=== PATIENT | female | born 1960 | race Caucasian/White ===

== ENCOUNTER 2023-12-15 09:32 | Day surgery (SDC) | payer BC, OTHER ==
[2023-12-15] MEDS ORDERED: Sodium Chloride 0.9% 10 ML Syringe FLUSH PRN (10:00)
[2023-12-15] MEDS: Lactated Ringers 1,000 ML IV SCH (10:15)
[2023-12-15] MEDS ORDERED: Propofol 200 MG/20 ML SDV ONE (10:44)
[2023-12-15] MEDS ORDERED: Midazolam 1 MG/ML 2 ML SDV ONE (10:44)
== END 2023-12-15 13:30 | disposition home or self-care (01) ==
LOC: KA.SDS 09:32
PROVIDERS: ATTEND Family Medicine
DX: Z12.11 Encounter for screening for malignant neoplasm of colon (principal); K63.5 Polyp of colon; K57.30 Diverticulosis of large intestine without perforation or abscess without bleeding; K64.8 Other hemorrhoids; Z80.0 Family history of malignant neoplasm of digestive organs; E78.2 Mixed hyperlipidemia; K21.9 Gastro-esophageal reflux disease without esophagitis; F41.8 Other specified anxiety disorders; E66.9 Obesity, unspecified; Z68.35 Body mass index [BMI] 35.0-35.9, adult; Z79.899 Other long term (current) drug therapy
CPT/HCPCS: 00811; J2250; J2704; J3490; J7120